=== PATIENT | male | born 1970 | race Caucasian/White ===

== ENCOUNTER 2020-09-03 11:45 | Emergency (ER) | payer OTHER ==
[~2020-09-03] VITALS: Ht 188 cm; Wt 88.5 kg
[2020-09-03 11:54] VITALS: BP 138/79
--- NOTE | 2020-09-03 11:56 | NUR ---
Patient ambulated to bed 5. RN evaluating the patient at bedside.
--- NOTE | 2020-09-03 12:06 | NUR ---
Dr. Oro is evaluating the patient at bedside.
--- NOTE | 2020-09-03 12:07 | NUR ---
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 PT HAS BITES ON R HAND AND R LEG 5/10 PAIN. PT STATES DOG'S VACCINES ARE UP TO DATE. PMH: CANCER NKA
--- NOTE | 2020-09-03 12:20 | NUR ---
PT CONSENT WAS GIVEN FOR TDAP VACCINE SANOFI PASTEUR LIMITED, [facility] [id number] 12/08/21
[2020-09-03 12:49] VITALS: BP 138/79
--- NOTE | 2020-09-03 12:55 | NUR ---
Patient discharged with v/s stable. Written and verbal after care instructions given and explained. Patient verbalized understanding. Ambulatory with steady gait. All questions addressed prior to discharge. Advised to follow up with PMD.
== END 2020-09-03 12:55 | disposition home or self-care (01) ==
LOC: MED 11:45
DX: S61.451A Open bite of right hand, initial encounter (principal); S81.851A Open bite, right lower leg, initial encounter; W54.0XXA Bitten by dog, initial encounter; Y93.89 Activity, other specified; Y92.89 Other specified places as the place of occurrence of the external cause; Y99.8 Other external cause status
CPT/HCPCS: 12001; 90471; 90715; 99283